=== PATIENT | female | born 2000 | race Caucasian/White ===

== ENCOUNTER 2021-02-20 10:32 | Outpatient (CLI) | payer BC | END 2021-02-20 10:33 | disposition home or self-care (01) | LOC: BICRAD 10:32 | PROVIDERS: ATTEND Family Medicine | DX: M25.561 Pain in right knee (principal) ==

== ENCOUNTER 2022-10-26 16:09 | Emergency (ER) | payer BC ==
[2022-10-26] MEDS ORDERED: Lorazepam 1 MG TAB ONE (16:41)
== END 2022-10-26 18:04 | disposition home or self-care (01) ==
LOC: ERS 16:09
DX: F41.9 Anxiety disorder, unspecified (principal)
CPT/HCPCS: 99284

== ENCOUNTER 2023-02-21 10:44 | Outpatient (CLI) | payer BC | END 2023-02-21 10:45 | disposition home or self-care (01) | LOC: BICRAD 10:44 | PROVIDERS: ATTEND Nurse Practitioner Family | DX: M25.562 Pain in left knee (principal) ==

== ENCOUNTER 2024-05-18 12:30 | Outpatient (CLI) | payer BC | END 2024-05-18 12:31 | disposition home or self-care (01) | LOC: MRI 12:30 | PROVIDERS: ATTEND Psychiatry & Neurology Neurology | DX: G37.9 Demyelinating disease of central nervous system, unspecified (principal) | CPT/HCPCS: 70553 ==